=== PATIENT | female | born 2000 | race Caucasian/White ===

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

== ENCOUNTER 2020-01-13 06:30 | Day surgery (SDC) | payer OTHER ==
[~2020-01-13 06:30] MED LIST changes: +DEXAMETHASONE SOD PHOSPHATE 10 MG/ML 1 ML VIAL IV ONE; +LIDOCAINE 1% (10MG/ML) FOR IV START INTRADERMA PRN; +MIDAZOLAM 2 MG/2 ML VIAL IV PRN; -Pre Op ABX Message 1 EACH MISC MISCELLANE ONE; +fentaNYL (PF) 50 MCG/ML 2 ML AMP IV PRN
[2020-01-13 06:57] VITALS: BP 141/92
[2020-01-13] MEDS ORDERED: MIDAZOLAM ORAL SYRUP 10 MG/5 ML CUP PO ONE (07:01)
[2020-01-13] MEDS ORDERED: fentaNYL (PF) 50 MCG/ML 2 ML AMP ONE (07:52)
[2020-01-13] MEDS ORDERED: LIDOCAINE 1% INJ 10MG/ML (20 ML MDV) ONE (07:52)
[2020-01-13] MEDS ORDERED: KETOROLAC 30 MG/ML 1 ML VIAL ONE (07:52)
[2020-01-13] MEDS ORDERED: ROCURONIUM BROMIDE 10 MG/ML 5 ML VIAL IV ONE (07:52)
[2020-01-13] MEDS ORDERED: DEXAMETHASONE SOD PHOS (MDV) 100 MG/10 ML VIAL ONE (07:52)
[2020-01-13] MEDS ORDERED: PROPOFOL 10 MG/ML 20 ML VIAL IV ONE (07:52)
[2020-01-13] MEDS ORDERED: ONDANSETRON 4 MG/2 ML VIAL ONE (07:52)
--- NOTE | 2020-01-13 10:48 | P.OP ---
Date of Procedure: 01/13/20 Preoperative Diagnosis: Caries, gingivitis, periodontitis, periapical necrosis Postoperative Diagnosis: Oral health established Procedure(s) Performed: Radiographs, Adult prophy, dental restorations and extractions Surgeon: Hiwot Linares Condition: stable Indications for Procedure: Preoperative swelling on lower right and pain when eating according to patients mother Fractured teeth Routine dental maintenance Operative Findings: Caries, PARL, gingivitis and periodontal disease, fractured teeth Description of Procedure: 6 carpules of [place] 4% local and mental infiltration -Adult prophy with polishing and scaling. -16 PA Radiographs -Periodic Exam -#6-Resin Core with Direct pulp cap with thercal LC and glass ionomer, etch with best etch and Filtek Bulk shade A2 -#7-Simple EXT -#8-L Resin with best etch and scotchbond Filtek Bulk Shade A2 -#9-Simple EXT -#10-Simple EXT -#H-D amalgam with Direct pulp cap with theracal LC, copalite (Class II mobility) -#12-Resin Core with glass ionomer and Filtek Bulk Shade A2 -#18-application of silver diamine with Rivastar on occlusal surface due to partial impaction and occlusal caries -#K-Simple EXT -#21-Resin core with glass ionomer and Filtek Bulk Shade A2 -#22-Simple EXT -#23-Simple EXT -#24-simple EXT -#27-Simple EXT -#30-M Amalgam with direct pulp cap with theracal and glass ionomer 2 and 1/2 hours of OR time
[2020-01-13 11:01] VITALS: TEMP 97.6
[2020-01-13 11:05] VITALS: RESP 16
[2020-01-13 11:18] VITALS: PULSE 88
== END 2020-01-13 11:41 | disposition home or self-care (01) ==
LOC: OR 06:30
PROVIDERS: ATTEND Dentist General Practice
DX: K02.9 Dental caries, unspecified (principal); K05.10 Chronic gingivitis, plaque induced; K05.30 Chronic periodontitis, unspecified; K04.1 Necrosis of pulp; S02.5XXA Fracture of tooth (traumatic), initial encounter for closed fracture; F40.240 Claustrophobia; Q87.19 Other congenital malformation syndromes predominantly associated with short stature; K91.2 Postsurgical malabsorption, not elsewhere classified; Z79.899 Other long term (current) drug therapy; Z98.890 Other specified postprocedural states; X58.XXXA Exposure to other specified factors, initial encounter
CPT/HCPCS: 41899; 81025; 84703; J2405; J2001; J3010; J1885; J1100; J2704